=== PATIENT | female | born 1995 | race Caucasian/White ===

== ENCOUNTER 2023-11-15 14:38 | Emergency (ER) | payer MEDICAID ==
[~2023-11-15] VITALS: Ht 167.6 cm; Wt 81.0 kg
[2023-11-15 14:48] VITALS: O2SAT 98
[2023-11-15] MEDS: CEFTRIAXONE 1GM/50ML 50 ML IV ONE (15:15)
[2023-11-15] MEDS: SODIUM CHLORIDE 0.9% 1000ML BAG (SEPSIS BOLUS) IV ONE (15:58)
[2023-11-15] MEDS: ACETAMINOPHEN 325MG TABLET PO STA (15:58)
[2023-11-15 16:16] LABS: BASOPHILS % 0.4 % (0.0-2.0); DIFFERENTIAL COMMENT 0; EOSINOPHILS % 0.2 % (0.0-5.0); HEMATOCRIT. 37.5 % (36.0-48.0); HEMOGLOBIN. 12.5 g/dL (12.0-16.0); LYMPHOCYTES % 13.6 % (20.0-50.0); MEAN CORPUSCULAR HEMOGLOBIN 28.6 pg (28.0-32.0); MEAN CORPUSCULAR HGB CONC 33.3 g/dL (31.0-37.0); MEAN CORPUSCULAR VOLUME 85.8 fL (81.0-99.0); MEAN PLATELET VOLUME 12.5 fl (7.4-10.4); MONOCYTES % 4.1 % (2.0-8.0); NEUTROPHILS % 81.7 % (40.0-76.0); PLATELET 127 x1000/uL (130-400); RED BLOOD CELL COUNT 4.37 mill/uL (4.2-5.4); RED CELL DISTRIBUTION WIDTH 16.1 % (11.6-14.6); WHITE BLOOD COUNT 5.4 x1000/uL (4.5-11.0)
[2023-11-15 16:19] LABS: CHLORIDE 105 mEq/L (98-107); POTASSIUM 3.3 mEq/L (3.5-5.1); SODIUM 135 mEq/L (136-145)
[2023-11-15 16:20] LABS: CARBON DIOXIDE 21 mEq/L (21-32)
[2023-11-15 16:21] LABS: CALCIUM 9.2 mg/dL (8.7-10.4)
[2023-11-15 16:25] LABS: CREATININE 0.7 mg/dL (0.6-1.0); GLUCOSE 93 mg/dL (70-105); UREA NITROGEN BLOOD 7 mg/dL (9-23)
[2023-11-15] MEDS: POTASSIUM CHLORIDE 20MEQ TABLET SR PO NR (17:00)
[2023-11-15 17:39] LABS: TROPONIN I HIGH SENSITIVITY < 4 ng/L (3.0-34)
[2023-11-15 18:24] VITALS: BP 110/84; PULSE 91; RESP 20; TEMP 99.1
[2023-11-15] MEDS ORDERED: AMOX1TAB16 MT (19:39)
== END 2023-11-15 15:28 | disposition home or self-care (01) ==
LOC: ER 14:38 → CANBEDREQ 11-16 22:33
DX: N61.0 Mastitis without abscess (principal); R50.9 Fever, unspecified; R00.0 Tachycardia, unspecified
CPT/HCPCS: 99291; 96365; 96366; 80048; 83605; 85025; 87040; 84484; 36415; 84145; 76641; J0696; J7030